=== PATIENT | male | born 1985 | race Caucasian/White ===

== ENCOUNTER 2016-05-30 16:20 | Inpatient (IN) | payer MEDICAID, OTHER ==
[2016-05-30] MEDS ORDERED: MAGNESIUM HYDROXIDE 2,400 MG/10 ML CUP PO PRN (22:06)
[2016-05-30] MEDS ORDERED: MAG HYDROX/AL HYDROX/SIMETH 30 ML CUP PO PRN (22:06)
[2016-05-30] MEDS ORDERED: LORazepam 2 MG/ML SYRINGE IM PRN (22:12)
[2016-05-30] MEDS ORDERED: QUEtiapine 100 MG TAB PO PRN (22:12)
[2016-05-30] MEDS: ACETAMINOPHEN TAB 325 MG TAB PO PRN (22:52)
[2016-05-30] MEDS: LORazepam 1 MG TAB PO PRN (22:53)
[2016-05-31] MEDS: LORazepam 1 MG TAB PO PRN ×2 (08:26→20:26)
[2016-05-31] MEDS: NICOTINE 21MG/24HR PATCH TRANSDERM SCH (08:26)
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
[2016-05-31] MEDS: ZIPRASIDONE 20 MG VIAL IM PRN ×2 (12:55→22:23)
[2016-05-31] MEDS ORDERED: WATER FOR INJECTION, STERILE 10 ML IV ONE ×2 (12:55→22:02)
[2016-05-31] MEDS: ARIPiprazole 15 MG TAB PO SCH ×2 (12:56→19:23)
--- NOTE | 2016-05-31 19:48 | CONS ---
DATE OF CONSULTATION: CHIEF COMPLAINT: Hallucinations. HISTORY OF PRESENT ILLNESS: This is a 30-year-old male who presented to the hospital with worsening hallucinations and depression. Patient currently is denying chest pain, shortness breath, nausea, vomiting, or abdominal pain. Patient is very difficult to obtain information due to his mental status. REVIEW OF SYSTEMS: All 14 systems reviewed and negative except as above. PAST MEDICAL HISTORY: Bipolar disorder, depression and anxiety. SOCIAL HISTORY: Positive for 1 pack per day cigarette smoking. No alcohol or drug abuse. PAST SURGICAL HISTORY: None. HOME MEDICATIONS: He takes sleeping pill at nighttime; unsure the name of that pill. FAMILY HISTORY: Refused to provide information as he is worried that I am going to use it against his family. ALLERGIES: No known drug allergies. PHYSICAL EXAMINATION: VITAL SIGNS: Reviewed and stable. LUNGS: Clear to auscultation bilaterally. HEART: Normal S1, S2. ABDOMEN: Soft, no tenderness. Positive bowel sounds in all four quadrants. SKIN: No new rash. LOWER EXTREMITIES: No edema. NEURO: No focal deficit. Cranial nerves 2 through 12 intact. HEENT: Atraumatic, normocephalic. PERRLA. NECK: Supple, no masses. No thyromegaly. IMAGING AND LABS: Reviewed. ASSESSMENT AND PLAN: 1. Hallucinations with bipolar disorder per your management. 2. Tobacco dependency. We will continue with nicotine patch during this hospital stay. 3. Will follow-up with you during this hospital stay on an as needed basis.
[2016-05-31] MEDS ORDERED: ZIPRASIDONE 20 MG VIAL IM ONE (22:02)
--- NOTE | 2016-06-01 08:22 | P.PN ---
Progress Note - Text Interval history: The patient is found in the hallway he follows me to an interview room reluctantly. He states "if I speak to you am I entering into a contract" the patient is carrying around his court related paperwork and is upset by information on the petition. He states until the issue is resolved he will refuse medication. He refers to me as acting on behalf of Lucifer. He continues to spontaneously speak of a variety of mandaeism themes. Mental status exam: The patient is alert he is dressed in a hospital gown he is wearing a blanket over top. Eye contact is intermittent. He is more agitated today. He describes feelings of persecution and paranoia. He feels that staff are doing things to him and he is concerned about his court paperwork. He feels that we are acting on behalf of the devil. Insight and judgment are poor. Obviously continues to experience acute symptoms of psychosis inhibiting appropriate psychosocial functioning. Staff report that he has been loud at times he has received Geodon injectable medication while on the mental health unit already. Affect is irritable. Speech is spontaneous mildly pressured. Plan: The patient will continue on his current medication we will monitor his compliance. I will speak with staff to see if the Geodon injection has been effective or if that needs to be changed. The patient requires continued psychiatric hospitalization. Vital signs reviewed.
[2016-06-01] MEDS: LORazepam 1 MG TAB PO PRN ×2 (08:49→15:53)
[2016-06-01] MEDS: ARIPiprazole 15 MG TAB PO SCH ×2 (08:49→13:38)
[2016-06-01] MEDS: NICOTINE 21MG/24HR PATCH TRANSDERM SCH ×2 (09:14→16:58)
[2016-06-01] MEDS: ACETAMINOPHEN TAB 325 MG TAB PO PRN (10:14)
[2016-06-01] MEDS: ZIPRASIDONE 20 MG VIAL IM PRN ×2 (10:17→21:43)
[2016-06-01] MEDS ORDERED: WATER FOR INJECTION, STERILE 10 ML IV ONE ×2 (10:19→21:28)
[2016-06-01] MEDS ORDERED: ZIPRASIDONE 20 MG VIAL IM ONE (21:28)
[2016-06-02] MEDS: LORazepam 1 MG TAB PO PRN (03:02)
[2016-06-02] MEDS: ARIPiprazole 15 MG TAB PO SCH (08:40)
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
[2016-06-02] MEDS: clonazePAM 1 MG TAB PO PRN ×2 (09:25→17:38)
[2016-06-02] MEDS: NICOTINE 21MG/24HR PATCH TRANSDERM SCH ×2 (10:02→13:12)
[2016-06-02] MEDS: ACETAMINOPHEN TAB 325 MG TAB PO PRN (16:20)
[2016-06-02] MEDS: QUEtiapine 100 MG TAB PO SCH (20:55)
[2016-06-03] MEDS: NICOTINE 21MG/24HR PATCH TRANSDERM SCH (08:44)
[2016-06-03] MEDS: clonazePAM 1 MG TAB PO PRN ×2 (08:44→16:49)
[2016-06-03] MEDS ORDERED: WATER FOR INJECTION, STERILE 10 ML IV ONE (11:31)
[2016-06-03] MEDS: ZIPRASIDONE 20 MG VIAL IM PRN (11:33)
--- NOTE | 2016-06-03 11:33 | P.PN ---
Progress Note - Text Interval history: The patient is found in the hallway he follows me to an interview room. He continues to struggle with symptoms of psychosis and believes he is the vessel for angels and demons. We attempted to discuss the court process he participated in in this morning and he states he doesn't understand it despite the explanation. He did not receive any injections yesterday and did comply with the Abilify oral dose so far. Mental status exam: The patient is alert he seated calmly in the chair he is soft-spoken. He continues to spontaneously verbalize paranoid and persecutory thoughts and is religiously preoccupied. He is reporting no thoughts of harming himself or others. Insight and judgment impaired. He demonstrates no agitated behavior. He does not present hypomanic or manic. He is able to maintain appropriate eye contact at times. Plan: The Abilify has been increased to 20 mg daily we will continue Seroquel 100 mg at bedtime temporarily. The patient did go to court and a treatment order was issued. If he refuses the Abilify he will receive a Geodon injection. We will continue to monitor him for safety and encourage his participation in the milieu. Vital signs reviewed.
[2016-06-03] MEDS: ACETAMINOPHEN TAB 325 MG TAB PO PRN (16:48)
[2016-06-03 21:00] LABS: Appearance,Urine Clear (Clear); Bilirubin,Urine Negative (Negative); Glucose,Urine (UA) Negative (Negative); Ketones,Urine Negative (Negative); Leukocyte Esterase,Urine Negative (Negative); Nitrite,Urine Negative (Negative); PH, Urine 6.5 (5.0-8.0); Protein,Urine Negative (Negative); Specific Gravity,Urine 1.005 (1.001-1.035); UA Billing (MACRO vs. MICRO) CHEM; Urobilinogen,Urine <2.0 mg/dL (<2.0)
[2016-06-03] MEDS: QUEtiapine 100 MG TAB PO SCH (21:13)
[2016-06-04] MEDS: clonazePAM 1 MG TAB PO PRN ×3 (05:02→20:45)
[2016-06-04] MEDS: ACETAMINOPHEN TAB 325 MG TAB PO PRN ×2 (06:57→20:44)
[2016-06-04] MEDS: NICOTINE 21MG/24HR PATCH TRANSDERM SCH (08:07)
[2016-06-04] MEDS: LORazepam 0.5 MG TAB PO PRN ×2 (10:23→17:42)
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
[2016-06-04] MEDS ORDERED: ARIPiprazole 10 MG TAB PO SCH (17:00)
[2016-06-04] MEDS: QUEtiapine 100 MG TAB PO SCH (22:42)
[2016-06-05] MEDS: ACETAMINOPHEN TAB 325 MG TAB PO PRN ×2 (06:00→10:45)
[2016-06-05] MEDS: LORazepam 0.5 MG TAB PO PRN (06:00)
[2016-06-05] MEDS: NICOTINE 21MG/24HR PATCH TRANSDERM SCH (08:27)
[2016-06-05] MEDS: clonazePAM 1 MG TAB PO PRN ×2 (10:45→16:14)
--- NOTE | 2016-06-05 15:07 | P.PN ---
Progress Note - Text Interval history:. I reviewed medical records and interviewed patient He reports sleeping better with Seroquel ,still endorsing :racing thoughts , auditory and visual hallucinations ,scientology delusion ,easy distracted and low frustration tolerance.Patient endorses high anxiety and ruminating about his diagnosis PER NURSING STAFF: No aggressive behavior but did require PRN Ativan at 6 AM Mental status exam: The patient is casually dressed ,good eyes contact ,speech is circumstantial but easy to redirect ,tearful at times when talking about " Not able to maintain job and be independent",denies suicidal or homicidal ideation ,endorses psychotic features :delusion and auditory hallucination,no command voice,no aggressive behavior ,his insight is improving to certain extend Plan: Discontinue PRN Ativan ,continue Abilify 30 mg daily ,Seroquel for sleep Klonopin PRN for anxiety. We will monitor him for safety and provide reality orientation when possible.
[2016-06-05 15:52] VITALS: BMI 24.3
[2016-06-06] MEDS: QUEtiapine 100 MG TAB PO SCH (00:11)
[2016-06-06] MEDS: ACETAMINOPHEN TAB 325 MG TAB PO PRN ×5 (00:13→22:52)
[2016-06-06] MEDS: clonazePAM 1 MG TAB PO PRN ×4 (00:14→22:52)
[2016-06-06] MEDS: ARIPiprazole 15 MG TAB PO SCH (08:16)
[2016-06-06] MEDS: NICOTINE 21MG/24HR PATCH TRANSDERM SCH (08:17)
--- NOTE | 2016-06-06 09:30 | P.PN ---
Progress Note - Text Interval history: The patient's is found in the hallway he follows me to an interview room. He reports that "there is less commotion in my head" referring to hallucinations. Although they are still present he feels he is able to begin thinking a little more clearly. He verbalizes goals of wanting to get employment and be productive. He states he continues to be "connected to the spirit realm". He continues to experience hallucinations from angels and demons and he feels he continues to be their vessel. He states ordinarily he is a peacemaker and not violent. It appears he did receive a when necessary injection over the weekend for some agitated behavior. His Abilify was titrated to 30 mg daily. Mental status exam: The patient is alert he seated calmly eye contact is appropriate speech is spontaneous fluent nonpressured. He's mildly circumstantial at times. He continues to endorse auditory and visual hallucinations. He states there is less commotion in his head meaning he is thinking a little more clearly. He is reporting no acute suicidal or homicidal ideation. Insight and judgment impaired slowly improving. He demonstrates no verbal or physical aggressiveness. No signs of EPS observed. He remains alert and oriented to person place and date. Plan: The patient will continue on the Abilify 30 mg daily we discussed utilizing Abilify maintena. He will continue using Seroquel 100 mg at bedtime as needed for insomnia. Vital signs reviewed. The patient requires further psychiatric hospitalization until his symptoms of psychosis improve further. There still causing him some dysfunction.
[2016-06-07] MEDS: QUEtiapine 100 MG TAB PO PRN (00:21)
[2016-06-07] MEDS: ARIPiprazole 15 MG TAB PO SCH (08:46)
[2016-06-07] MEDS: NICOTINE 21MG/24HR PATCH TRANSDERM SCH (08:47)
[2016-06-07] MEDS: clonazePAM 1 MG TAB PO PRN ×3 (08:47→22:58)
--- NOTE | 2016-06-07 09:02 | P.PN ---
Progress Note - Text Interval history: The patient is found in the hallway he follows me to an interview room. He states that he feels things are improving for him. He continues to process everything with a islam paradigm in terms of answering questions. There has been no report of agitated behavior. He feels his sleep is improving appetite is stable. He thinks each day he is increasingly more able to focus on goals. He expresses some concern for his mother who is dealing with breast cancer. We again discussed the use of Abilify maintena he appears receptive. Mental status exam: The patient is alert he seated calmly. He is wearing 2 shirts and 2 jackets. Hygiene appears adequate. Eye contact is good speech is fluent spontaneous nonpressured. He is more easily directed. Symptoms of psychosis are present but they seem to be causing less dysfunction here on the mental health unit. He is reporting no acute suicidal or homicidal ideation. Insight and judgment slowly improving. He demonstrates no verbal or physical aggressiveness. No evidence of extrapyramidal symptoms. Plan: The patient will continue on the Abilify we will likely instituted Abilify maintena this week. We will consider discharge towards the end of the week. We will continue to monitor him for safety and encourage his participation in the milieu and provide reality orientation when possible. Vital signs reviewed.
[2016-06-07] MEDS: ACETAMINOPHEN TAB 325 MG TAB PO PRN ×3 (10:47→21:53)
[2016-06-07] MEDS: NAPROXEN 250 MG TAB PO PRN ×2 (16:09→22:56)
[2016-06-08] MEDS: QUEtiapine 100 MG TAB PO PRN (00:46)
[2016-06-08] MEDS: ARIPiprazole 15 MG TAB PO SCH (08:08)
[2016-06-08] MEDS: NICOTINE 21MG/24HR PATCH TRANSDERM SCH ×2 (08:09→08:59)
[2016-06-08] MEDS: ACETAMINOPHEN TAB 325 MG TAB PO PRN ×2 (08:57→17:51)
--- NOTE | 2016-06-08 08:57 | P.PN ---
Progress Note - Text Interval history: The patient is found in the hallway he follows me to an interview room. He reports that his mood continues to improve. He feels he is able to think more clearly. We again discussed initiating the Abilify maintena injection and he is agreeable. We discussed discharge planning. He reports that he did sleep last night appetite is been stable. Mental status exam: The patient is alert he is dressed in his same clothing eye contact is appropriate speech is fluent nonpressured. He states his mood is good affect is constricted. He properly participates in the conversation there is no aggressive behavior. Insight and judgment slowly improving. There is still evidence of delusional thought but it is attenuated. He is reporting no suicidal or homicidal ideation intent or plan. There is no evidence of extrapyramidal symptoms. He remains oriented to person place and date. Plan: The patient will continue on his current psychotropic medication however we will discontinue the Seroquel and initiate amitriptyline 50 mg at bedtime. He is reporting suspected migraine pain which he has had for years this may also assist with sleep. He will receive and Abilify maintena injection 400 mg today. We will continue the oral dose of Abilify for 2 more weeks. I anticipate discharging the patient tomorrow if he demonstrates continued improvement and remains clinically stable.
[2016-06-08] MEDS: clonazePAM 1 MG TAB PO PRN ×3 (08:59→23:11)
[2016-06-08] MEDS ORDERED: ARIPiprazole 400 MG VIAL IM ONE (10:00)
[2016-06-08] MEDS ORDERED: NAPROXEN 250 MG TAB PO PRN (14:54)
[2016-06-08] MEDS ORDERED: AMITRIPTYLINE HCL 50 MG TAB PO SCH (21:00)
[2016-06-09 05:44] VITALS: BP 132/94; PULSE 76; RESP 16; TEMP 97.6
[2016-06-09] MEDS: ARIPiprazole 15 MG TAB PO SCH (08:43)
[2016-06-09] MEDS: clonazePAM 1 MG TAB PO PRN (08:43)
[2016-06-09] MEDS: NICOTINE 21MG/24HR PATCH TRANSDERM SCH (08:43)
[2016-06-09] MEDS: ACETAMINOPHEN TAB 325 MG TAB PO PRN (08:43)
--- NOTE | 2016-06-17 09:01 | DS ---
DATE OF ADMISSION: 05/30/2016 DATE OF DISCHARGE: 06/09/2016 CONSULT PHYSICIAN: Clyde. CONSULTING PROVIDER: Dr. Yvonne Núñez. CONSULT REASON: For medical management. Do you want consulting provider notified? Yes. DISCHARGE DIAGNOSES: 1. Schizoaffective disorder, depressed in early remission. 2. Cannabis use disorder. 3. Rule out schizophrenia, undifferentiated. BRIEF SUMMARY OF THE ADMISSION NOTE: Patient was admitted to the mental health unit through the emergency room on petition. Please refer to complete history and physical examination dictated by Dr. Barton on May 31, 2016. As the patient had extensive history of poor compliance with medication, Dr. Barton pursued involuntary admission and patient was ordered combined treatment between inpatient and outpatient treatment and he was started on injection for Abilify. HOSPITAL COURSE: At the time of admission, patient's urine drug screen was positive for cannabis. Patient was refusing any medication the first week of his until he went to the court then he was started on oral Abilify that gradually increased to 30 mg in the morning and received IM Abilify Maintena 400 mg. Patient was participating in group therapy. He was still restorationist preoccupied, but easy to redirect. MENTAL STATUS EXAMINATION: At the time of his discharge, the patient is alert, seated calmly, good eye contact. Speech is spontaneous, non-pressured. He was continued to be spiritually and restorationist preoccupied. He is still experiencing auditory and visual hallucinations, but according to him, it is no command voices, it is just spirits telling him to preach the gospel. He is reporting no acute suicidal or homicide ideation. His insight and judgment slowly improving. He demonstrates no verbal or physical aggression. DISCHARGE MEDICATIONS: 1. Abilify Maintena 400 mg IM once a month, is due end of June. 2. Abilify 30 mg daily in the morning for 2 weeks. 3. Amitriptyline 50 mg at bedtime for sleep and for migraine headache. 4. Also he was given 10 day supply of Klonopin 1 mg every 8 hours p.r.n. only for anxiety. PLAN: Patient has an appointment at [facility] on June 13 at 9:30 a.m. The patient is able to complete his activities of daily living. He denied any hopeless or helpless feeling. He denied any homicidal or suicide ideation that there is no imminent safety risk and he is appropriate for transition to outpatient care. Patient condition at the time of the discharge: Stable.
--- NOTE | 2016-06-21 13:30 | DS ---
DATE OF ADMISSION: 05/30/2016 DATE OF DISCHARGE: 06/09/2016 CONSULT PHYSICIAN: Clyde. CONSULTING PROVIDER: Dr. Yvonne Núñez. CONSULT REASON: For medical management. Do you want consulting provider notified? Yes. DISCHARGE DIAGNOSES: 1. Schizoaffective disorder. 2. Cannabis use disorder. 3. Poor compliance with medication. BRIEF SUMMARY OF THE ADMISSION NOTES: Patient was admitted on involuntary basis. Please refer to complete history and physical examination dictated by Dr. Barton on May 31, 2016. The patient presents with petition stating that the patient and has been having auditory and visual hallucinations, very buddhism preoccupied. Does believe that there is ( ) telling him to kill himself. Initially, he was very disorganized, kept talking about that he trusts in God, talking about demons and ivory using his blood to do God's will. Patient was refusing any medication and based on the past psychiatric history, it seems that he never had been compliant with oral medication in the outpatient setting. So Dr. Barton pursued involuntary admission and he completed the second clinical certificate as the patient was acute psychotic and refused all the medications. For complete social history and past psychiatric history, please refer to Dr. Barton's history and physical exam on May 31. HOSPITAL COURSE: Patient was under the care of Dr. Barton up to June 08; however, I covered him as Dr. Barton was on . After the deferral meeting, patient started on Abilify that gradually titrated to 30 mg at bedtime and he was started on injection 400 mg of Abilify Maintena. Patient was complaining of having migraine headache, so amitriptyline or Elavil was added to the combination to help him to sleep at night and also to help his migraine headache. As the patient was complaining of feeling restless, anxious, pacing back and forth, Klonopin was added to 1 mg every 8 hours p.r.n. Patient was compliant with medication, was participating in the group and he did agree to follow up in the outpatient treatment. Also he stated that his sleep and appetite have been improved and stable. MENTAL STATUS EXAMINATION: At the time of the discharge, patient was alert, dressed in his own clothing, appropriate eye contact. Speech is non pressured. He stated mood is good. Affect is constricted. There is no verbal or aggressive behavior . There is still some evidence of buddhism delusional, but it is much less than the time of the admission. There is no evidence of idea of reference or extrapyramidal symptoms. Patient denied any auditory or visual hallucination. He denied any suicidal or homicidal ideation intent or plan. He remained oriented to person, place and date. PLAN: 1. Patient was discharged from the mental health unit to return back home. 2. Patient has an appointment on June 13 at 9:30 a.m. at [facility] for intake. 3. Patient was instructed to abstain completely from cannabis. 4. Patient was given prescription for Elavil 50 mg at bedtime for 4 weeks supply; Abilify 30 mg daily for the next 2 weeks then he will discontinue; Abilify Maintena 400 mg IM once a month; Klonopin 1 mg every 8 hours p.r.n. Patient is aware of the addiction potential of Klonopin. He was given only 10 day supply. 5. There is no eminent safety risk and patient is appropriate for transition to outpatient care. Patient condition at the time of the discharge, stable.
== END 2016-06-09 10:04 | disposition home or self-care (01) | DRG 885 ==
LOC: EC 16:20 → 3MHU 20:54
PROVIDERS: ADMIT Psychiatry & Neurology Psychiatry; ATTEND Psychiatry & Neurology Psychiatry
DX: F25.9 Schizoaffective disorder, unspecified (principal); F23 Brief psychotic disorder; F22 Delusional disorders; F31.9 Bipolar disorder, unspecified; F17.210 Nicotine dependence, cigarettes, uncomplicated; F12.90 Cannabis use, unspecified, uncomplicated; F41.9 Anxiety disorder, unspecified; Z91.14 Patient's other noncompliance with medication regimen
CPT/HCPCS: 80306; 81003; 82075; 99285

== ENCOUNTER 2016-06-21 12:30 | Inpatient (IN) | payer MEDICAID, OTHER ==
--- NOTE | 2016-06-21 14:13 | ED ---
Recheck HPI - General Chief Complaint: Recheck/Abnormal Lab/Rx Stated Complaint: medrefill/change Time Seen by Provider: 06/21/16 13:21 Source: patient, RN notes reviewed Mode of arrival: ambulatory Limitations: no limitations - History of Present Illness Initial Comments: Patient is a 30-year-old male who presents to the emergency room for psychiatric evaluation. Patient states he just discharged from [facility] the last few weeks ago. Patient states he had his medication changed. Patient states he takes Vistaril, Abilify and Cogentin. Patient states he's recently started on Vistaril and Cogentin. Patient states the Vistaril was causing him to have restless leg symptoms was given Cogentin to offset the symptoms. Patient states that he stopped taking the Vistaril on Monday. Patient states he began having increasing visual and auditory hallucinations. Patient does state he has a history of hallucinations. Patient states this morning he heard a voice saying his name. Patient states he'll have hallucinations of seeing plans for patient to continue his life. Patient denies suicidal ideations. Patient states he would never go through with the plans that he is being told. Patient states he thinks he needs his medication changed. Patient denies homicidal ideations. Patient denies fevers, chills, chest pain, shortness of breath. Patient does state that he has a slight headache. Patient denies alcohol use. Patient denies illicit drug use. - Related Data Home Medications Medication Instructions Recorded Confirmed ARIPiprazole [ARIPiprazole] 30 mg PO DAILY 06/21/16 06/21/16 ARIPiprazole [Abilify Maintena] 400 mg IM QMONTH 06/21/16 06/21/16 Benztropine Mesylate [Cogentin] 2 mg PO TID 06/21/16 06/21/16 hydrOXYzine PAMOATE [Vistaril] 25 mg PO TID 06/21/16 06/21/16 traZODone HCL [Desyrel] 100 mg PO HS 06/21/16 06/21/16 Allergies Allergy/AdvReac Type Severity Reaction Status Date / Time No Known Allergies Allergy Verified 06/21/16 12:37 Review of Systems ROS Statement: Those systems with pertinent positive or pertinent negative responses have been documented in the HPI. ROS Other: All systems not noted in ROS Statement are negative. Past Medical History Past Medical History: No Reported History History of Any Multi-Drug Resistant Organisms: None Reported Additional Past Surgical History / Comment(s): Had surgery on his nose here at [facility]. Past Anesthesia/Blood Transfusion Reactions: No Reported Reaction Past Psychological History: Anxiety, Bipolar Smoking Status: Current every day smoker Past Alcohol Use History: None Reported Past Drug Use History: None Reported - Past Family History Mother Additional Family Medical History / Comment(s): no medical problems Father History Unknown: Yes Additional Family Medical History / Comment(s): alcoholism General Exam - General Exam Comments Initial Comments: Sitting in exam room, no acute distress. Limitations: no limitations General appearance: alert, in no apparent distress Head exam: Present: atraumatic, normocephalic, normal inspection Eye exam: Present: normal appearance ENT exam: Present: normal exam Neck exam: Present: normal inspection Respiratory exam: Present: normal lung sounds bilaterally. Absent: respiratory distress Cardiovascular Exam: Present: normal rhythm, tachycardia, normal heart sounds Extremities exam: Present: normal inspection Back exam: Present: normal inspection Neurological exam: Present: alert, oriented X3, CN II-XII intact, normal gait Psychiatric exam: Present: normal affect, normal mood Skin exam: Present: warm, dry, intact, normal color. Absent: rash Course Vital Signs 06/21/16 06/21/16 06/21/16 12:33 14:21 17:00 Temperature 96.7 F L 99.5 F 98.3 F Pulse Rate 112 H 105 H Respiratory 18 14 Rate Blood Pressure 143/90 132/69 O2 Sat by Pulse 98 96 Oximetry 06/21/16 17:10 Temperature 98.3 F Pulse Rate 105 H Respiratory 18 Rate Blood Pressure 132/69 O2 Sat by Pulse 96 Oximetry Medical Decision Making - Medical Decision Making Patient is a 30-year-old male presents emergency room for evaluation of psychiatric symptoms. Patient states that he was feeling warm. Influenza ordered, patient refused. Patient denies any other symptoms or complaints. Patient is medically cleared to be evaluated by psych. Patient evaluated by psych and will be admitted. - Lab Data Lab Results 06/21/16 06/21/16 Range/Units 14:17 14:17 Urine Color Light Yellow Urine Appearance Clear (Clear) Urine pH 6.5 (5.0-8.0) Ur Specific [place] 1.002 (1.001-1.035) Urine Protein Negative (Negative) Urine Glucose (UA) Negative (Negative) Urine Ketones Negative (Negative) Urine Blood Negative (Negative) Urine Nitrate Negative (Negative) Urine Bilirubin Negative (Negative) Urine Urobilinogen <2.0 (<2.0) mg/dL Ur Leukocyte Esterase Negative (Negative) Urine Opiates Screen Not Detected (NotDetected) Ur Oxycodone Screen Not Detected (NotDetected) Urine Methadone Screen Not Detected (NotDetected) Ur Propoxyphene Screen Not Detected (NotDetected) Ur Barbiturates Screen Not Detected (NotDetected) U Tricyclic Antidepress Not Detected (NotDetected) Ur Phencyclidine Scrn Not Detected (NotDetected) Ur Amphetamines Screen Not Detected (NotDetected) U Methamphetamines Scrn Not Detected (NotDetected) U Benzodiazepines Scrn Not Detected (NotDetected) Urine Cocaine Screen Not Detected (NotDetected) U Marijuana (THC) Screen Not Detected (NotDetected) Disposition Clinical Impression: Hallucinations Disposition: ADMITTED IP TO THIS [facility] Condition: Stable Decision Date: 06/21/16
[2016-06-21] MEDS ORDERED: ACETAMINOPHEN TAB 500 MG TAB PO STA (16:49)
[2016-06-21] MEDS ORDERED: MAGNESIUM HYDROXIDE 2,400 MG/10 ML CUP PO PRN (17:06)
[2016-06-21] MEDS ORDERED: MAG HYDROX/AL HYDROX/SIMETH 30 ML CUP PO PRN (17:06)
[2016-06-21 17:11] VITALS: RESP 18
[2016-06-21] MEDS ORDERED: hydrOXYzine PAMOATE 25 MG CAP PO PRN (17:11)
[2016-06-21] MEDS ORDERED: ARIPIPRAZOLE 400 MG IM SCH (17:15)
[2016-06-21 17:21] LABS: Appearance,Urine Clear (Clear); Bilirubin,Urine Negative (Negative); Glucose,Urine (UA) Negative (Negative); Ketones,Urine Negative (Negative); Leukocyte Esterase,Urine Negative (Negative); Nitrite,Urine Negative (Negative); PH, Urine 6.5 (5.0-8.0); Protein,Urine Negative (Negative); Specific Gravity,Urine 1.002 (1.001-1.035); UA Billing (MACRO vs. MICRO) CHEM; Urobilinogen,Urine <2.0 mg/dL (<2.0)
[2016-06-21] MEDS ORDERED: ZIPRASIDONE 20 MG VIAL IM ONE (18:09)
[2016-06-21] MEDS ORDERED: WATER FOR INJECTION, STERILE 10 ML IV ONE (18:09)
[2016-06-21] MEDS: ZIPRASIDONE 20 MG VIAL IM PRN (18:23)
[2016-06-21] MEDS: ACETAMINOPHEN TAB 325 MG TAB PO PRN (20:44)
[2016-06-21] MEDS: BENZTROPINE MESYLATE 1 MG TAB PO SCH (20:45)
[2016-06-21] MEDS ORDERED: traZODone HCL 100 MG TAB PO SCH (21:00)
[2016-06-22] MEDS: ACETAMINOPHEN TAB 325 MG TAB PO PRN ×3 (05:22→20:31)
[2016-06-22] MEDS ORDERED: WATER FOR INJECTION, STERILE 10 ML IV ONE (06:37)
[2016-06-22] MEDS ORDERED: ZIPRASIDONE 20 MG VIAL IM ONE (06:37)
[2016-06-22] MEDS: ZIPRASIDONE 20 MG VIAL IM PRN (06:41)
[2016-06-22] MEDS: BENZTROPINE MESYLATE 1 MG TAB PO SCH ×2 (09:26→20:30)
[2016-06-22] MEDS: ARIPiprazole 15 MG TAB PO SCH (09:26)
[2016-06-22] MEDS: NICOTINE 14MG/24HR PATCH TRANSDERM SCH ×2 (09:26→18:36)
[2016-06-22] MEDS: busPIRone HCl 10 MG TAB PO SCH ×2 (09:27→20:30)
--- NOTE | 2016-06-22 09:33 | P.HP ---
Psychiatric H&P - . History & Physical: Allergies Allergy/AdvReac Type Severity Reaction Status Date / Time No Known Allergies Allergy Verified 06/21/16 12:37 Vital Signs Temp 98.3 F 06/21/16 17:10 Pulse 95 06/22/16 05:23 Resp 18 06/22/16 05:23 BP 136/80 06/22/16 05:23 Pulse Ox 96 06/21/16 17:10 Laboratory Last Values Urine Color Light Yellow 06/21/16 14: Urine Appearance Clear (Clear) 06/21/16 14:17 Urine pH 6.5 (5.0-8.0) 06/21/16 14:17 Ur Specific [place] 1.002 (1.001-1.035) 06/21/16 14: Urine Protein Negative (Negative) 06/21/16 14:17 Urine Glucose (UA) Negative (Negative) 06/21/16 14:17 Urine Ketones Negative (Negative) 06/21/16 14:17 Urine Blood Negative (Negative) 06/21/16 14:17 Urine Nitrate Negative (Negative) 06/21/16 14:17 Urine Bilirubin Negative (Negative) 06/21/16 14:17 Urine Urobilinogen <2.0 mg/dL (<2.0) 06/21/16 14:17 Ur Leukocyte Esterase Negative (Negative) 06/21/16 14:17 Urine Opiates Screen Not Detected (NotDetected) 06/21/16 14:17 Ur Oxycodone Screen Not Detected (NotDetected) 06/21/16 14:17 Urine Methadone Screen Not Detected (NotDetected) 06/21/16 14:17 Ur Propoxyphene Screen Not Detected (NotDetected) 06/21/16 14:17 Ur Barbiturates Screen Not Detected (NotDetected) 06/21/16 14:17 U Tricyclic Antidepress Not Detected (NotDetected) 06/21/16 14:17 Ur Phencyclidine Scrn Not Detected (NotDetected) 06/21/16 14:17 Ur Amphetamines Screen Not Detected (NotDetected) 06/21/16 14:17 U Methamphetamines Scrn Not Detected (NotDetected) 06/21/16 14:17 U Benzodiazepines Scrn Not Detected (NotDetected) 06/21/16 14:17 Urine Cocaine Screen Not Detected (NotDetected) 06/21/16 14:17 U Marijuana (THC) Screen Not Detected (NotDetected) 06/21/16 14:17 06/22/16 09:26 IDENTIFYING DATA: This patient is a 30-year-old male who was admitted to the mental health unit through the emergency room on an existing treatment order for mood symptoms and symptoms of psychosis. HPI: The patient presented reporting hopelessness feelings and he felt overwhelmed with anxiety. He endorsed a worsening of auditory hallucinations. The patient was recently discharged from this unit please refer to the psychiatric evaluation on 05/31/2016 for details pertaining to that admission. The patient feels overwhelmed by current anxiety he states that his Klonopin was discontinued and he was placed on Vistaril and Cogentin. With the last admission we initiated Abilify maintena for symptoms of psychosis. His amitriptyline was discontinued he was placed on trazodone. He continues to have shinto preoccupation he endorses auditory hallucinations. He reported thoughts of . He is reporting no thoughts of harming anyone else. No clear history of hypomanic or manic episodes. PAST PSYCHIATRIC HISTORY: This is the patient's fifth inpatient psychiatric admission he was recently discharged from this unit. He is on Abilify maintena and completing the oral course as well. Previously had been on Zyprexa. He is established with [facility]. No history of suicide attempts. No history of any other self-injurious behavior. PMH: None reported ALLERGIES: NO KNOWN DRUG ALLERGIES MEDICATIONS: Abilify maintena, oral Abilify, Cogentin, Vistaril, trazodone CHEMICAL DEPENDENCY HISTORY: He is reporting no recent alcohol use previously he described using alcohol twice a month having 2-3 shots. He has been known to use marijuana frequently FAMILY PSYCHIATRIC HISTORY: His father was known to have unspecified mental illness no suicides in the family FAMILY CHEMICAL DEPENDENCY HISTORY: His father is known to be alcohol dependent SOCIAL HISTORY: The patient is 30 years old she single he has no children he is not employed no history of service, he has a high school education with some college classes. He has 1 sister. He was raised by both parents up until the age of 13 until they . Legal history includes one DUI no reported abuse history MENTAL STATUS EXAM: The patient's is a balding male he is dressed in his own clothing eye contact is appropriate speech is fluent spontaneous mildly pressured at times but he is still directable. He frequently changes position while seated in his chair. He demonstrates no verbal or physical aggressiveness. He endorses a mood that is depressed and primarily anxious he endorses auditory hallucinations that are noncommanding. He continues to be religiously preoccupied. Affect appears frustrated. Thought process is circumstantial he is somewhat perseverative. There is no psychomotor slowing. He is oriented to person place and date. He is able spell world backwards. STRENGTHS/WEAKNESSES: Strengths: He is on an existing court order, outpatient follow-up through [facility] weaknesses impaired insight into symptoms of anxiety and psychosis INTELLECTUAL FUNCTIONING: Average IMPRESSIONS: [] 1. Psychosis unspecified rule out schizophrenia versus schizoaffective disorder , rule out cannabis use disorder PLAN: The patient has been admitted to the mental health unit on an existing court order. We will continue the oral Abilify 30 mg daily we will discontinue Vistaril and trazodone. We will reinitiate amitriptyline 50 mg at bedtime. For his anxiety complaint we will initiate BuSpar 10 mg twice daily. We discussed potential benefits and side effects of these medications and his questions were answered. He is encouraged to try to process his anxiety symptoms further in groups or with other coping skills. He will undergo a routine medical consultation social work will meet with the patient to complete a psychosocial assessment and begin discharge planning.
--- NOTE | 2016-06-22 15:15 | P.CONS ---
History of Present Illness - Reason for Consult Consult date: 06/22/16 Medical management - History of Present Illness This is a 30-year-old male. He does not have a primary care physician. He has a past mental history of anxiety and bipolar disorder, tobacco use and dependence. Patient was recently hospitalized in Patient states that the ACT team WAS not helping him and he had made multiple phone calls. He also does not think the medications he was on was helping. He states that he was seen by the ER physician and had a physical exam done at that time and he does not need a repeat done by us. Urinalysis was negative and urine drug screen negative. Patient refuses medical examination and review of his medical history. Past Medical History Past Medical History: No Reported History History of Any Multi-Drug Resistant Organisms: None Reported Additional Past Surgical History / Comment(s): Had surgery on his nose here at [facility]. Past Anesthesia/Blood Transfusion Reactions: No Reported Reaction Past Psychological History: Anxiety, Bipolar Smoking Status: Current every day smoker Past Alcohol Use History: None Reported Past Drug Use History: None Reported - Past Family History Mother Additional Family Medical History / Comment(s): no medical problems Father History Unknown: Yes Additional Family Medical History / Comment(s): alcoholism Medications and Allergies Home Medications Medication Instructions Recorded Confirmed Type ARIPiprazole [ARIPiprazole] 30 mg PO DAILY 06/21/16 06/21/16 History ARIPiprazole [Abilify Maintena] 400 mg IM QMONTH 06/21/16 06/21/16 History Benztropine Mesylate [Cogentin] 2 mg PO TID 06/21/16 06/21/16 History hydrOXYzine PAMOATE [Vistaril] 25 mg PO TID 06/21/16 06/21/16 History traZODone HCL [Desyrel] 100 mg PO HS 06/21/16 06/21/16 History Allergies Allergy/AdvReac Type Severity Reaction Status Date / Time No Known Allergies Allergy Verified 06/21/16 12:37 Physical Exam Vitals: Vital Signs Temp Pulse Pulse Resp BP BP Pulse Ox 06/22/16 05:23 95 18 136/80 06/21/16 17:10 98.3 F 105 H 18 132/69 96 06/21/16 17:00 98.3 F 105 H 14 132/69 96
[2016-06-22] MEDS: AMITRIPTYLINE HCL 50 MG TAB PO SCH (20:30)
[2016-06-23] MEDS: ACETAMINOPHEN TAB 325 MG TAB PO PRN ×3 (04:54→16:40)
[2016-06-23] MEDS: NICOTINE 14MG/24HR PATCH TRANSDERM SCH (08:18)
[2016-06-23] MEDS: BENZTROPINE MESYLATE 1 MG TAB PO SCH ×2 (08:18→20:06)
[2016-06-23] MEDS: ARIPiprazole 15 MG TAB PO SCH (08:19)
[2016-06-23] MEDS: busPIRone HCl 10 MG TAB PO SCH ×2 (08:21→20:06)
--- NOTE | 2016-06-23 08:39 | P.PN ---
Progress Note - Text Interval history: The patient is found in the hallway he follows me to an interview room. He reports his mood is improving. He slept last night. Appetite is stable he is attending groups. He states he is willing to give our medication change a chance. He is looking forward to seeking job opportunities once discharged. It seems that his auditory hallucinations are resolving. He reports no command auditory hallucinations. Mental status exam: The patient is alert he seated calmly eye contact is appropriate speech is fluent and spontaneous nonpressured. He does interrupt me several times during our session he is more aware of it and apologizes. He reports no acute suicidal or homicidal ideation intent or plan. He is endorsing no command auditory hallucinations. He continues to explain almost everything in a temple context. Overall his psychosis is improved compared to last admission. Insight and judgment improving. There is no verbal or physical aggressiveness. No abnormal involuntary movements appreciated. Plan: The patient's will continue on his current psychotropic medications. We will assess him for another 24 hours and consider discharging him tomorrow. He is encouraged to participate in the milieu. Vital signs reviewed blood pressure pulse elevated. We will continue to monitor him for safety.
[2016-06-23] MEDS: AMITRIPTYLINE HCL 50 MG TAB PO SCH (20:06)
[2016-06-24 06:47] VITALS: BP 115/63; PULSE 61; TEMP 97.8
[2016-06-24] MEDS: busPIRone HCl 10 MG TAB PO SCH (08:31)
[2016-06-24] MEDS: NICOTINE 14MG/24HR PATCH TRANSDERM SCH (08:31)
[2016-06-24] MEDS: BENZTROPINE MESYLATE 1 MG TAB PO SCH (08:31)
[2016-06-24] MEDS: ARIPiprazole 15 MG TAB PO SCH (08:31)
--- NOTE | 2016-06-24 09:58 | P.DS ---
Providers Date of admission: 06/21/16 16:55 Expected date of discharge: 06/24/16 Attending physician: William Barton Consults: 06/21/16 17:06 Consult Physician Routine Consulting Provider: Jose Simmons Consult Reason/Comments: follow up H & P Do you want consulting provider notified?: Yes Primary care physician: Stated None - Discharge Diagnosis(es) (1) Schizoaffective disorder Current Visit: Yes Status: Acute Priority: High (2) Cannabis use disorder, mild, abuse Current Visit: Yes Status: Acute Priority: Medium Hospital Course: Brief summary of admission note: This patient is a 30-year-old single male who was readmitted to the mental health unit through the emergency room on an existing treatment order for mood symptoms and an exacerbation of psychotic symptoms. The patient reported he felt hopeless he felt overwhelmed with symptoms of anxiety. He endorses a worsening of auditory hallucinations. He was recently discharged from this mental health unit earlier this month. The patient states he was upset that his Klonopin was discontinued he was placed on Vistaril and Cogentin. The Abilify maintena was initiated with his last admission for symptoms of psychosis. For full details please refer to my psychiatric evaluation dated 06/22/2016. Summary of hospital course: The patient was admitted to the mental health unit he presented voluntarily but is on an existing court order for psychiatric treatment. We reviewed his presenting symptoms and medication options. He clearly presented less psychotic than last admission indicating the Abilify has been effective. We discussed that he is not able to continue using benzodiazepines as they were meant to be only temporarily prescribed. We decided to treat anxiety symptoms with BuSpar this was initiated 10 mg twice daily and titrated further during the course of the admission. We discontinued trazodone and started amitriptyline 50 mg at bedtime again. Cogentin was restarted and titrated to 1 mg 3 times daily. The patient demonstrated no agitated behavior he required no use of restraints. His acute symptoms resolved fairly quickly during this admission. He is endorsing no acute suicidal or homicidal ideation. He endorsed no command auditory hallucinations. He is reporting future oriented thinking and goals for trying to obtain work and work towards independent living. He is scheduled to work with the act team and the patient is agreeable. Mental status exam: The patient is alert he is a balding male he is dressed in his own clothing. Eye contact is appropriate speech is fluent and spontaneous nonpressured. He appropriately participates in the conversation. He is not verbally intrusive there is no verbal or physical aggressiveness demonstrated. He continues to have a advent preoccupation but he speaks of it less spontaneously. Again he is clearly doing better in terms of psychosis compared to last admission. He reports no suicidal or homicidal ideation intent or plan. He does not appear hypomanic or manic. He is endorsing no paranoid or persecutory thoughts. Insight and judgment improved. He demonstrates no abnormal involuntary movements. He remains oriented to person place and date. He is able to demonstrate an appropriate range of affect. Impressions 1. Schizoaffective disorder, cannabis use disorder Plan: The patient will be discharged from the mental health unit today. He is scheduled to follow up with the act team at 2 PM. He has been on the oral Abilify for a sufficient amount of time that can be discontinued. He is due for his next Abilify maintena 400 mg IM no later than July 09. He will continue on BuSpar 15 mg twice daily, Cogentin 1 mg 3 times daily, amitriptyline 50 mg at bedtime. He is encouraged to abstain from any use of alcohol marijuana or any other illicit drugs. He is not interested in participating in inpatient chemical dependency treatment. The plan would be for him to address these issues with outpatient mental health services. He is able to participate in his own activities of daily living. There is no imminent safety risk he is appropriate for transition back to outpatient psychiatric care. He is instructed to return to the hospital with any acute safety concerns. Patient Condition at Discharge: Stable Plan - Discharge Summary New Discharge Prescriptions: ARIPiprazole [Abilify Maintena] 400 mg IM QMONTH #1 vial NS Amitriptyline HCl [Elavil] 50 mg PO HS #30 tab Benztropine Mesylate [Cogentin] 1 mg PO TID #90 tab Nicotine 14Mg/24Hr Patch [Habitrol] 1 patch TRANSDERM DAILY #14 patch busPIRone HCL 15 mg PO BID #60 tab Discharge Medication List ARIPiprazole [Abilify Maintena] 400 mg IM QMONTH #1 vial NS 06/24/16 [Rx] Amitriptyline HCl [Elavil] 50 mg PO HS #30 tab 06/24/16 [Rx] Benztropine Mesylate [Cogentin] 1 mg PO TID #90 tab 06/24/16 [Rx] Nicotine 14Mg/24Hr Patch [Habitrol] 1 patch TRANSDERM DAILY #14 patch 06/24/16 [ Rx] busPIRone HCL 15 mg PO BID #60 tab 06/24/16 [Rx] Follow up Appointment(s)/Referral(s): [facility] [Outside] - 1 Week (w/ CARLA at [facility] on 06/24/16 @ 2pm w/ Jacque Davidson on 06/27/16 @ 3pm) None,Stated [Primary Care Provider] - 1 Week
[2016-06-24] MEDS ORDERED: BENZTROPINE MESYLATE 1 MG TAB PO SCH (16:00)
[2016-06-24] MEDS ORDERED: busPIRone HCl 5 MG TAB PO SCH (21:00)
== END 2016-06-24 10:31 | disposition home or self-care (01) | DRG 885 ==
LOC: EC 12:30 → 3MHU 16:55
PROVIDERS: ADMIT Psychiatry & Neurology Psychiatry; ATTEND Psychiatry & Neurology Psychiatry
DX: F25.9 Schizoaffective disorder, unspecified (principal); F31.9 Bipolar disorder, unspecified; F41.9 Anxiety disorder, unspecified; G25.81 Restless legs syndrome; T43.595A Adverse effect of other antipsychotics and neuroleptics, initial encounter; F17.200 Nicotine dependence, unspecified, uncomplicated; F12.10 Cannabis abuse, uncomplicated; Z79.899 Other long term (current) drug therapy; Z81.1 Family history of alcohol abuse and dependence; Z81.8 Family history of other mental and behavioral disorders
CPT/HCPCS: 80306; 81003; 82075; 99285

== ENCOUNTER 2017-09-19 21:38 | Emergency (ER) | payer OTHER ==
--- NOTE | 2017-09-19 22:02 | ED ---
Psych HPI <Chuy Kay - Last Filed: 09/20/17 00:48> - General Source: patient Mode of arrival: ambulatory <Amber Feliciano - Last Filed: 09/20/17 04:14> - General Chief Complaint: Psychiatric Symptoms Stated Complaint: Mental Health Time Seen by Provider: 09/19/17 21:49 - History of Present Illness Initial Comments: 32-year-old male patient presents to the emergency department today for evaluation of suicidal ideation. Patient states that he has suffered for a long time with depression and anxiety. He states that [place] of [place] a year ago was off his medications for a few months. States that over the last few weeks he has had an increase in suicidal ideation. He states that he has "a couple of plans "that he would use to take his life. He states that he did make an appointment with [facility] and saw them on Monday. States he did receive an injection of antidepressant medication and started on some medications, states he has been taking over the last 2 days but hasn't help his symptoms. He denies any increase in his symptoms states they have been about the same. He denies any alcohol or drug use. States he is currently homeless and living in a truck. States he is having difficulty sleeping with frequent nightmares. Patient states that he "deals with the spiritual realm" and he has been interacting with "angels and demons". He denies any homicidal ideation. He states he is currently feeling well physically. Denies any physical symptoms. (Amber Feliciano) - Related Data Home Medications Medication Instructions Recorded Confirmed ARIPiprazole [Abilify Maintena] 400 mg IM QMONTH 09/19/17 09/19/17 Prazosin HCl 2 mg PO HS 09/19/17 09/19/17 busPIRone HCL [Buspar] 30 mg PO BID@0700,1400 09/19/17 09/19/17 hydrOXYzine PAMOATE [Vistaril] 50 mg PO HS 09/19/17 09/19/17 Previous Rx's Medication Instructions Recorded Benztropine Mesylate [Cogentin] 1 mg PO TID #90 tab 06/24/16 Allergies Allergy/AdvReac Type Severity Reaction Status Date / Time No Known Allergies Allergy Verified 09/19/17 22:12 Review of Systems ROS Other: All systems not noted in ROS Statement are negative. <Chuy Kay - Last Filed: 09/20/17 00:48> ROS Other: All systems not noted in ROS Statement are negative. <Amber Feliciano - Last Filed: 09/20/17 04:14> ROS Statement: Those systems with pertinent positive or pertinent negative responses have been documented in the HPI. Past Medical History Past Medical History: No Reported History History of Any Multi-Drug Resistant Organisms: None Reported Additional Past Surgical History / Comment(s): nasal Past Anesthesia/Blood Transfusion Reactions: No Reported Reaction Past Psychological History: Anxiety, Bipolar Smoking Status: Current every day smoker Past Alcohol Use History: None Reported Past Drug Use History: None Reported - Past Family History Mother Additional Family Medical History / Comment(s): no medical problems Father History Unknown: Yes Additional Family Medical History / Comment(s): alcoholism <Amber Feliciano - Last Filed: 09/20/17 04:14> General Exam Limitations: no limitations General appearance: alert, in no apparent distress, other (This is a well- developed, well-nourished adult male patient in no acute distress. Vital signs upon presentation are temperature 97.6F, pulse 102, respirations 16, blood pressure 126/80, pulse ox 99% on room air.) Eye exam: Present: normal appearance, PERRL, EOMI. Absent: scleral icterus, conjunctival injection, periorbital swelling ENT exam: Present: normal exam, normal oropharynx, mucous membranes moist Respiratory exam: Present: normal lung sounds bilaterally. Absent: respiratory distress, wheezes, rales, rhonchi, stridor Cardiovascular Exam: Present: regular rate, normal rhythm, normal heart sounds. Absent: systolic murmur, diastolic murmur, rubs, gallop, clicks GI/Abdominal exam: Present: soft, normal bowel sounds. Absent: distended, tenderness, guarding, rebound, rigid Neurological exam: Present: alert, oriented X3, CN II-XII intact Psychiatric exam: Present: normal affect, normal mood Skin exam: Present: warm, dry, intact, normal color. Absent: rash <Amber Feliciano - Last Filed: 09/20/17 04:14> Course <Chuy Kay - Last Filed: 09/20/17 00:48> <Amber Feliciano - Last Filed: 09/20/17 04:14> Vital Signs 09/19/17 09/20/17 09/20/17 21:41 01:29 03:04 Temperature 97.6 F 97.5 F L Pulse Rate 102 H 72 Respiratory 16 18 16 Rate Blood Pressure 126/80 116/53 O2 Sat by Pulse 99 99 Oximetry - Reevaluation(s) Reevaluation #1: 09/20/17 00:50 When patient was informed that he would have to have his blood drawn for transfer to another psychiatric facility he became upset stating that he refused to have his blood drawn. He stated that it was against his jainism and he feared what we would do with the blood. When asked about his orthodoxy affiliation, he stated "we aren't talking about that". I did explain the transfer process and that in order to provide the best care to him we had to have blood work to rule out physiologic causes of his symptoms. Patient again refused stating that he would not cooperate to have his blood drawn. I explained the petition process and what it meant for him and his psychiatric care. Patient stated that if we forced him to give blood samples that there would be "repercussions when he was discharged". Patient stated "it won't be now, but later when I'm discharged there'll be consequences". consulting engineer present for duration of the conversation. 09/20/17 00:53 (Amber Feliciano) Medical Decision Making <Chuy Kay - Last Filed: 09/20/17 00:48> - Lab Data Result diagrams: 09/20/17 00:47 09/20/17 00:47 <Amber Feliciano - Last Filed: 09/20/17 04:14> - Medical Decision Making I saw this patient in conjunction with the physician casting assistant. I performed independent history and physical exam. Agree with case management. When I interview the patient, he admits to noncompliance with his psychiatric medications for couple of months now. He states over the past weeks his mood has worsened and he is now having a relatively frequent suicidal thoughts. When questioned if he has a plan, states that "there are number of options." Patient does not contract for safety. Clinical certification is filed. (Chuy Kay) 32-year-old male patient presented to the emergency department today with suicidal ideation and delusions. Physical examination was unremarkable. Labs reviewed and were unremarkable other than drug screen being positive for cocaine. Patient was seen and evaluated by [facility] and it was determined that he would benefit from inpatient admission. Patient would not contract for safety and petition was filed. Patient will be transferred to [facility] after 8:30 in the morning due to their staffing coordination. Patient does have patient safety Center present. Patient will be monitored by attending physician until disposition. (Amber Feliciano) - Lab Data Lab Results 09/20/17 09/20/17 09/20/17 Range/Units 00:47 00:47 01:29 WBC 7.8 (3.8-10.6) k/uL RBC 5.14 (4.30-5.90) m/uL Hgb 15.6 (13.0-17.5) gm/dL Hct 46.5 (39.0-53.0) % MCV 90.5 (80.0-100.0) fL MCH 30.3 (25.0-35.0) pg MCHC 33.5 (31.0-37.0) g/dL RDW 13.1 (11.5-15.5) % Plt Count 311 (150-450) k/uL Neutrophils % 54 % Lymphocytes % 34 % Monocytes % 6 % Eosinophils % 4 % Basophils % 0 % Neutrophils # 4.2 (1.3-7.7) k/uL Lymphocytes # 2.6 (1.0-4.8) k/uL Monocytes # 0.5 (0-1.0) k/uL Eosinophils # 0.3 (0-0.7) k/uL Basophils # 0.0 (0-0.2) k/uL Sodium 143 (137-145) mmol/L Potassium 4.4 (3.5-5.1) mmol/L Chloride 109 H (98-107) mmol/L Carbon Dioxide 26 (22-30) mmol/L Anion Gap 8 mmol/L BUN 12 (9-20) mg/dL Creatinine 1.00 (0.66-1.25) mg/dL Est GFR (CKD-EPI)AfAm >90 (>60 ml/min/1.73 sqM) Est GFR (CKD-EPI)NonAf >90 (>60 ml/min/1.73 sqM) Glucose 97 (74-99) mg/dL Calcium 8.3 L (8.4-10.2) mg/dL Total Bilirubin 0.3 (0.2-1.3) mg/dL AST 21 (17-59) U/L ALT 47 (21-72) U/L Alkaline Phosphatase 55 (38-126) U/L Total Protein 4.9 L (6.3-8.2) g/dL Albumin 3.1 L (3.5-5.0) g/dL Urine Color Yellow Urine Appearance Clear (Clear) Urine pH 7.5 (5.0-8.0) Ur Specific [place] 1.018 (1.001-1.035) Urine Protein Negative (Negative) Urine Glucose (UA) Negative (Negative) Urine Ketones Negative (Negative) Urine Blood Negative (Negative) Urine Nitrite Negative (Negative) Urine Bilirubin Negative (Negative) Urine Urobilinogen <2.0 (<2.0) mg/dL Ur Leukocyte Esterase Negative (Negative) Urine Opiates Screen Not Detected (NotDetected) Ur Oxycodone Screen Not Detected (NotDetected) Urine Methadone Screen Not Detected (NotDetected) Ur Propoxyphene Screen Not Detected (NotDetected) Ur Barbiturates Screen Not Detected (NotDetected) U Tricyclic Antidepress Not Detected (NotDetected) Ur Phencyclidine Scrn Not Detected (NotDetected) Ur Amphetamines Screen Not Detected (NotDetected) U Methamphetamines Scrn Not Detected (NotDetected) U Benzodiazepines Scrn Not Detected (NotDetected) Urine Cocaine Screen Detected H (NotDetected) U Marijuana (THC) Screen Not Detected (NotDetected) Disposition <Chuy Kay - Last Filed: 09/20/17 00:48> - Out of Hospital Transfer - Req. Specs Out of Hospital Transfer - Requested Specifics: Psychiatric Non-ICU ([facility] [place]) <Amber Feliciano - Last Filed: 09/20/17 04:14> Clinical Impression: Suicidal ideation, Delusions Disposition: TRANSFER TO PSYCH HOSP/UNIT Referrals: None,Stated [Primary Care Provider] - 1-2 days
[2017-09-20 00:56] LABS: Basophils % (A) 0 %; Eosinophils # (A) 0.3 k/uL (0-0.7); Eosinophils % (A) 4 %; HCT 46.5 % (39.0-53.0); HGB 15.6 gm/dL (13.0-17.5); Lymphocytes # (A) 2.6 k/uL (1.0-4.8); Lymphocytes % (A) 34 %; MCH 30.3 pg (25.0-35.0); MCHC 33.5 g/dL (31.0-37.0); MCV 90.5 fL (80.0-100.0); Monocytes # (A) 0.5 k/uL (0-1.0); Monocytes % (A) 6 %; Neutrophils # (A) 4.2 k/uL (1.3-7.7); Neutrophils % (A) 54 %; Platelet Count 311 k/uL (150-450); RBC 5.14 m/uL (4.30-5.90); RDW 13.1 % (11.5-15.5); WBC 7.8 k/uL (3.8-10.6)
[2017-09-20 01:09] LABS: ALT 47 U/L (21-72); AST 21 U/L (17-59); Albumin 3.1 g/dL (3.5-5.0); Alkaline Phosphatase 55 U/L (38-126); Anion Gap 8 mmol/L; Blood Urea Nitrogen 12 mg/dL (9-20); Calcium 8.3 mg/dL (8.4-10.2); Carbon Dioxide 26 mmol/L (22-30); Chloride 109 mmol/L (98-107); Glucose 97 mg/dL (74-99); Potassium 4.4 mmol/L (3.5-5.1); Sodium 143 mmol/L (137-145); Total Bilirubin 0.3 mg/dL (0.2-1.3); Total Protein 4.9 g/dL (6.3-8.2)
[2017-09-20 01:40] LABS: Appearance,Urine Clear (Clear); Bilirubin,Urine Negative (Negative); Blood,Urine Negative (Negative); Color,Urine Yellow; Glucose,Urine (UA) Negative (Negative); Ketones,Urine Negative (Negative); Leukocyte Esterase,Urine Negative (Negative); Nitrite,Urine Negative (Negative); PH, Urine 7.5 (5.0-8.0); Protein,Urine Negative (Negative); Specific Gravity,Urine 1.018 (1.001-1.035); Urobilinogen,Urine <2.0 mg/dL (<2.0)
[2017-09-20 01:58] LABS: Cocaine Screen,Urine Detected (NotDetected); Phencyclidine Screen,Urine Not Detected (NotDetected); Urn Cannabinoid Scrn Not Detected (NotDetected)
[2017-09-20 01:59] LABS: Amphetamine Screen,Urine Not Detected (NotDetected); Barbiturate Screen,Urine Not Detected (NotDetected); Benzodiazepines Screen,Urine Not Detected (NotDetected); Methadone Screen, Urine Not Detected (NotDetected); Opiate Screen,Urine Not Detected (NotDetected); Oxycodone Screen, Urine Not Detected (NotDetected); Tricyclic Antidepressant,Urine Not Detected (NotDetected)
[2017-09-20] MEDS ORDERED: clonazePAM 1 MG TAB PO STA (05:41)
[2017-09-20 06:56] VITALS: TEMP 98
[2017-09-20 08:37] VITALS: BP 108/70; PULSE 64; RESP 16
== END 2017-09-20 09:10 ==
LOC: EC 21:38
DX: F22 Delusional disorders (principal); R45.851 Suicidal ideations; F32.9 Major depressive disorder, single episode, unspecified; F41.9 Anxiety disorder, unspecified; F17.200 Nicotine dependence, unspecified, uncomplicated; Z79.899 Other long term (current) drug therapy
CPT/HCPCS: 36415; 80053; 80306; 81003; 82075; 85025; 99285

== ENCOUNTER 2018-02-05 08:31 | Emergency (ER) | payer OTHER ==
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
[2018-02-05 10:51] VITALS: RESP 18
[2018-02-05 11:32] VITALS: BP 117/77; PULSE 89; TEMP 98.7
== END 2018-02-05 11:30 | disposition home or self-care (01) ==
LOC: EC 08:31
DX: R51 Headache (principal); S50.312A Abrasion of left elbow, initial encounter; S80.212A Abrasion, left knee, initial encounter; S80.211A Abrasion, right knee, initial encounter; F20.9 Schizophrenia, unspecified; F31.9 Bipolar disorder, unspecified; F41.9 Anxiety disorder, unspecified; F17.200 Nicotine dependence, unspecified, uncomplicated; Z79.899 Other long term (current) drug therapy; Y04.0XXA Assault by unarmed brawl or fight, initial encounter; Y93.89 Activity, other specified
CPT/HCPCS: 70450; 72125; 99284

== ENCOUNTER 2021-04-02 17:20 | Emergency (ER) | payer OTHER ==
[2021-04-02 17:37] VITALS: BP 130/80; PULSE 94; RESP 16; TEMP 98.3
[2021-04-02] MEDS ORDERED: SODIUM CHLORIDE 0.9% 1,000 ML IV STA (17:48)
[2021-04-02 18:05] LABS: Appearance,Urine Clear (Clear); Bilirubin,Urine Negative (Negative); Blood,Urine Negative (Negative); Color,Urine Yellow; Glucose,Urine (UA) Negative (Negative); Hyaline Casts,Urine 3 /lpf (0-2); Ketones,Urine 1+ (Negative); Leukocyte Esterase,Urine Negative (Negative); Mucus,Urine Few /hpf; Nitrite,Urine Negative (Negative); PH, Urine 5.5 (5.0-8.0); Protein,Urine 1+ (Negative); RBC,Urine <1 /hpf (0-5); Specific Gravity,Urine 1.039 (1.001-1.035); WBC,Urine <1 /hpf (0-5)
[2021-04-02 18:11] LABS: Amphetamine Screen,Urine Not Detected (NotDetected); Barbiturate Screen,Urine Not Detected (NotDetected); Benzodiazepines Screen,Urine Not Detected (NotDetected); Cocaine Screen,Urine Not Detected (NotDetected); Methadone Screen, Urine Not Detected (NotDetected); Opiate Screen,Urine Detected (NotDetected); Oxycodone Screen, Urine Not Detected (NotDetected); Phencyclidine Screen,Urine Not Detected (NotDetected); Tricyclic Antidepressant,Urine Not Detected (NotDetected); Urn Cannabinoid Scrn Detected (NotDetected)
--- NOTE | 2021-04-02 18:15 | ED ---
Overdose HPI - General Source: patient, EMS, RN notes reviewed Mode of arrival: EMS Limitations: no limitations <Alec Sanchez - Last Filed: 04/02/21 18:05> - History of Present Illness MD Complaint: accidental overdose (Denying intentional suicide attempt) -: hour(s) Intent: want to go to sleep How Overdose Was Discovered: family/friend present at time Treatments Prior to Arrival: none <Hi Diamond - Last Filed: 04/03/21 01:00> - General Chief Complaint: Overdose Stated Complaint: altered mental status, poss overdose Time Seen by Provider: 04/02/21 17:36 - History of Present Illness Initial Comments: This is a 35-year-old male presents emergency from with police and EMS with chief complaint of possible overdose. Patient's been having some bizarre behavior mother reported that she was received a phone call stating that he drank a bottle of NyQuil and she states that he abuses kratom. Patient is not forthcoming with any information. Patient no physical complaints. Patient does admit to marijuana use. Patient denies headache chest pain denies being suicidal homicidal. (Alec Sanchez) - Related Data Home Medications Medication Instructions Recorded Confirmed No Known Home Medications 04/02/21 04/02/21 Allergies Allergy/AdvReac Type Severity Reaction Status Date / Time No Known Allergies Allergy Verified 04/02/21 19:43 Review of Systems ROS Other: All systems not noted in ROS Statement are negative. <Alec Sanchez - Last Filed: 04/02/21 18:05> ROS Other: All systems not noted in ROS Statement are negative. <Hi Diamond - Last Filed: 04/03/21 01:00> ROS Statement: Those systems with pertinent positive or pertinent negative responses have been documented in the HPI. Past Medical History Past Medical History: No Reported History History of Any Multi-Drug Resistant Organisms: None Reported Past Surgical History: Unable to Obtain Additional Past Surgical History / Comment(s): nasal Past Anesthesia/Blood Transfusion Reactions: No Reported Reaction Past Psychological History: Anxiety, Bipolar, Schizophrenia Smoking Status: Former smoker Past Alcohol Use History: Unable to Obtain Past Drug Use History: Cocaine - Past Family History Mother Additional Family Medical History / Comment(s): no medical problems Father History Unknown: Yes Additional Family Medical History / Comment(s): alcoholism <Alec Sanchez - Last Filed: 04/02/21 18:05> General Exam Limitations: no limitations General appearance: alert, in no apparent distress Head exam: Present: atraumatic, normocephalic, normal inspection Eye exam: Present: normal appearance, PERRL, EOMI. Absent: scleral icterus, conjunctival injection, periorbital swelling ENT exam: Present: normal exam, normal oropharynx, mucous membranes moist Neck exam: Present: normal inspection, full ROM. Absent: tenderness, meningismus, lymphadenopathy Respiratory exam: Present: normal lung sounds bilaterally. Absent: respiratory distress, wheezes, rales, rhonchi, stridor Cardiovascular Exam: Present: regular rate, normal rhythm, normal heart sounds. Absent: systolic murmur, diastolic murmur, rubs, gallop, clicks GI/Abdominal exam: Present: soft, normal bowel sounds. Absent: distended, tenderness, guarding, rebound, rigid Neurological exam: Present: alert, oriented X3, CN II-XII intact Psychiatric exam: Present: flat affect <Alec Sanchez - Last Filed: 04/02/21 18:05> General appearance: alert, in no apparent distress Head exam: Present: atraumatic, normocephalic, normal inspection Eye exam: Present: normal appearance, PERRL, EOMI. Absent: scleral icterus, conjunctival injection, periorbital swelling ENT exam: Present: normal exam, mucous membranes moist Neck exam: Present: normal inspection. Absent: tenderness, meningismus, lymphadenopathy Respiratory exam: Present: normal lung sounds bilaterally. Absent: respiratory distress, wheezes, rales, rhonchi, stridor Cardiovascular Exam: Present: regular rate, normal rhythm, normal heart sounds. Absent: systolic murmur, diastolic murmur, rubs, gallop, clicks GI/Abdominal exam: Present: soft, normal bowel sounds. Absent: distended, tenderness, guarding, rebound, rigid Extremities exam: Present: normal inspection, full ROM, normal capillary refill. Absent: tenderness, pedal edema, joint swelling, calf tenderness Back exam: Present: normal inspection Neurological exam: Present: alert, oriented X3, CN II-XII intact Psychiatric exam: Present: normal affect, normal mood Skin exam: Present: warm, dry, intact, normal color. Absent: rash <Roskopp,Hi B - Last Filed: 04/03/21 01:00> Course <Hi Diamond - Last Filed: 04/03/21 01:00> Vital Signs 04/02/21 17:23 Temperature 98.3 F Pulse Rate 94 Respiratory 16 Rate Blood Pressure 130/80 O2 Sat by Pulse 97 Oximetry - Reevaluation(s) Reevaluation #1: 04/03/21 00:59 Medical record is reviewed Medically clear for psychiatric evaluation (Hi Diamond) Reevaluation #2: 04/03/21 00:59 Mother feels comfortable taking patient home (Hi Diamond) Medical Decision Making - Lab Data Result diagrams: 04/02/21 18:03 04/02/21 18:03 <Hi Diamond - Last Filed: 04/03/21 01:00> - Medical Decision Making 35 male to the ER for evaluation, patient will be discharged home to care of his mother (Hi Diamond) - Lab Data Lab Results 04/02/21 04/02/21 04/02/21 Range/Units 17:51 18:03 18:03 WBC 12.3 H (3.8-10.6) k/uL RBC 4.95 (4.30-5.90) m/uL Hgb 15.5 (13.0-17.5) gm/dL Hct 46.3 (39.0-53.0) % MCV 93.5 (80.0-100.0) fL MCH 31.3 (25.0-35.0) pg MCHC 33.5 (31.0-37.0) g/dL RDW 12.8 (11.5-15.5) % Plt Count 362 (150-450) k/uL MPV 8.6 Neutrophils % 87 % Lymphocytes % 8 % Monocytes % 4 % Eosinophils % 0 % Basophils % 0 % Neutrophils # 10.7 H (1.3-7.7) k/uL Lymphocytes # 0.9 L (1.0-4.8) k/uL Monocytes # 0.5 (0-1.0) k/uL Eosinophils # 0.1 (0-0.7) k/uL Basophils # 0.0 (0-0.2) k/uL Sodium 135 L (137-145) mmol/L Potassium 3.5 (3.5-5.1) mmol/L Chloride 99 (98-107) mmol/L Carbon Dioxide 18 L (22-30) mmol/L Anion Gap 18 mmol/L BUN 7 L (9-20) mg/dL Creatinine 0.78 (0.66-1.25) mg/dL Est GFR (CKD-EPI)AfAm >90 (>60 ml/min/1.73 sqM) Est GFR (CKD-EPI)NonAf >90 (>60 ml/min/1.73 sqM) Glucose 141 H (74-99) mg/dL Calcium 9.1 (8.4-10.2) mg/dL Total Bilirubin 0.8 (0.2-1.3) mg/dL AST 24 (17-59) U/L ALT 24 (4-49) U/L Alkaline Phosphatase 56 (38-126) U/L Total Protein 6.8 (6.3-8.2) g/dL Albumin 4.5 (3.5-5.0) g/dL Urine Color Yellow Urine Appearance Clear (Clear) Urine pH 5.5 (5.0-8.0) Ur Specific [place] 1.039 H (1.001-1.035) Urine Protein 1+ H (Negative) Urine Glucose (UA) Negative (Negative) Urine Ketones 1+ H (Negative) Urine Blood Negative (Negative) Urine Nitrite Negative (Negative) Urine Bilirubin Negative (Negative) Urine Urobilinogen 2.0 (<2.0) mg/dL Ur Leukocyte Esterase Negative (Negative) Urine RBC <1 (0-5) /hpf Urine WBC <1 (0-5) /hpf Hyaline Casts 3 H (0-2) /lpf Urine Mucus Few H (None) /hpf Salicylates <1.0 mg/dL Urine Opiates Screen Detected H (NotDetected) Ur Oxycodone Screen Not Detected (NotDetected) Urine Methadone Screen Not Detected (NotDetected) Ur Propoxyphene Screen Not Detected (NotDetected) Acetaminophen 59.7 H* ug/mL Ur Barbiturates Screen Not Detected (NotDetected) U Tricyclic Antidepress Not Detected (NotDetected) Ur Phencyclidine Scrn Not Detected (NotDetected) Ur Amphetamines Screen Not Detected (NotDetected) U Methamphetamines Scrn Not Detected (NotDetected) U Benzodiazepines Scrn Not Detected (NotDetected) Urine Cocaine Screen Not Detected (NotDetected) U Marijuana (THC) Screen Detected H (NotDetected) Serum Alcohol <10 mg/dL 04/02/21 Range/Units 22:24 WBC (3.8-10.6) k/uL RBC (4.30-5.90) m/uL Hgb (13.0-17.5) gm/dL Hct (39.0-53.0) % MCV (80.0-100.0) fL MCH (25.0-35.0) pg MCHC (31.0-37.0) g/dL RDW (11.5-15.5) % Plt Count (150-450) k/uL MPV Neutrophils % % Lymphocytes % % Monocytes % % Eosinophils % % Basophils % % Neutrophils # (1.3-7.7) k/uL Lymphocytes # (1.0-4.8) k/uL Monocytes # (0-1.0) k/uL Eosinophils # (0-0.7) k/uL Basophils # (0-0.2) k/uL Sodium (137-145) mmol/L Potassium (3.5-5.1) mmol/L Chloride (98-107) mmol/L Carbon Dioxide (22-30) mmol/L Anion Gap mmol/L BUN (9-20) mg/dL Creatinine (0.66-1.25) mg/dL Est GFR (CKD-EPI)AfAm (>60 ml/min/1.73 sqM) Est GFR (CKD-EPI)NonAf (>60 ml/min/1.73 sqM) Glucose (74-99) mg/dL Calcium (8.4-10.2) mg/dL Total Bilirubin (0.2-1.3) mg/dL AST (17-59) U/L ALT (4-49) U/L Alkaline Phosphatase (38-126) U/L Total Protein (6.3-8.2) g/dL Albumin (3.5-5.0) g/dL Urine Color Urine Appearance (Clear) Urine pH (5.0-8.0) Ur Specific [place] (1.001-1.035) Urine Protein (Negative) Urine Glucose (UA) (Negative) Urine Ketones (Negative) Urine Blood (Negative) Urine Nitrite (Negative) Urine Bilirubin (Negative) Urine Urobilinogen (<2.0) mg/dL Ur Leukocyte Esterase (Negative) Urine RBC (0-5) /hpf Urine WBC (0-5) /hpf Hyaline Casts (0-2) /lpf Urine Mucus (None) /hpf Salicylates mg/dL Urine Opiates Screen (NotDetected) Ur Oxycodone Screen (NotDetected) Urine Methadone Screen (NotDetected) Ur Propoxyphene Screen (NotDetected) Acetaminophen 27.0 ug/mL Ur Barbiturates Screen (NotDetected) U Tricyclic Antidepress (NotDetected) Ur Phencyclidine Scrn (NotDetected) Ur Amphetamines Screen (NotDetected) U Methamphetamines Scrn (NotDetected) U Benzodiazepines Scrn (NotDetected) Urine Cocaine Screen (NotDetected) U Marijuana (THC) Screen (NotDetected) Serum Alcohol mg/dL Disposition <Alec Sanchez M - Last Filed: 04/02/21 18:05> Is patient prescribed a controlled substance at d/c from ED?: No <Hi Diamond - Last Filed: 04/03/21 01:00> Clinical Impression: Accidental drug overdose Disposition: HOME SELF-CARE Condition: Good Instructions (If sedation given, give patient instructions): Adult Overdose (ED) Referrals: Kyrie Gutierrez DO [Primary Care Provider] - 1-2 days
[2021-04-02 18:25] LABS: Basophils % (A) 0 %; Eosinophils # (A) 0.1 k/uL (0-0.7); Eosinophils % (A) 0 %; HCT 46.3 % (39.0-53.0); HGB 15.5 gm/dL (13.0-17.5); Lymphocytes # (A) 0.9 k/uL (1.0-4.8); Lymphocytes % (A) 8 %; MCH 31.3 pg (25.0-35.0); MCHC 33.5 g/dL (31.0-37.0); MCV 93.5 fL (80.0-100.0); Mean Platelet Volume 8.6; Monocytes # (A) 0.5 k/uL (0-1.0); Monocytes % (A) 4 %; Neutrophils # (A) 10.7 k/uL (1.3-7.7); Neutrophils % (A) 87 %; Platelet Count 362 k/uL (150-450); RBC 4.95 m/uL (4.30-5.90); RDW 12.8 % (11.5-15.5); WBC 12.3 k/uL (3.8-10.6)
[2021-04-02 18:35] LABS: ALT 24 U/L (4-49); AST 24 U/L (17-59); African American GFR (CKD) >90 (>60 ml/min/1.73 sqM); Albumin 4.5 g/dL (3.5-5.0); Alcohol <10 mg/dL; Alkaline Phosphatase 56 U/L (38-126); Anion Gap 18 mmol/L; Blood Urea Nitrogen 7 mg/dL (9-20); Calcium 9.1 mg/dL (8.4-10.2); Carbon Dioxide 18 mmol/L (22-30); Chloride 99 mmol/L (98-107); Glucose 141 mg/dL (74-99); Non-African American GFR(CKD) >90 (>60 ml/min/1.73 sqM); Potassium 3.5 mmol/L (3.5-5.1); Salicylate <1.0 mg/dL; Sodium 135 mmol/L (137-145); Total Bilirubin 0.8 mg/dL (0.2-1.3); Total Protein 6.8 g/dL (6.3-8.2)
[2021-04-02 18:42] LABS: Acetaminophen 59.7 ug/mL
== END 2021-04-03 01:13 | disposition home or self-care (01) ==
LOC: EC 17:20
DX: T48.5X1A Poisoning by other anti-common-cold drugs, accidental (unintentional), initial encounter (principal); F41.9 Anxiety disorder, unspecified; F31.9 Bipolar disorder, unspecified; F25.9 Schizoaffective disorder, unspecified; Z87.891 Personal history of nicotine dependence
CPT/HCPCS: 99284; 96360; 36415; 93005; 80053; 85025; 81001; 80306; 80143; 80179; G0480; 80320

== ENCOUNTER 2024-01-07 22:35 | Emergency (ER) | payer BC, MEDICARE, OTHER ==
[2024-01-07 23:53] LABS: Basophils % (A) 0 %; Eosinophils # (A) 0.1 k/uL (0-0.7); Eosinophils % (A) 1 %; HCT 45.7 % (39.0-53.0); Lymphocytes # (A) 2.4 k/uL (1.0-4.8); Lymphocytes % (A) 23 %; MCH 29.8 pg (25.0-35.0); MCHC 32.7 g/dL (31.0-37.0); MCV 90.9 fL (80.0-100.0); Mean Platelet Volume 6.8; Monocytes # (A) 0.8 k/uL (0-1.0); Monocytes % (A) 8 %; Neutrophils # (A) 7.1 k/uL (1.3-7.7); Neutrophils % (A) 66 %; Platelet Count 591 k/uL (150-450); RBC 5.03 m/uL (4.30-5.90); RDW 11.8 % (11.5-15.5); WBC 10.7 k/uL (3.8-10.6)
[2024-01-08 00:05] LABS: INR 0.9 (<1.2); Partial Thromboplastin Time 25.7 sec (22.0-30.0); Prothrombin Time 10.5 sec (10.0-12.5)
--- NOTE | 2024-01-08 00:16 | XR ---
EXAM: XR Chest, 2 Views CLINICAL HISTORY: ITS.REASON XR Reason: Chest Pain TECHNIQUE: Frontal and lateral views of the chest. COMPARISON: No relevant prior studies available. FINDINGS: Lungs: Unremarkable. No consolidation. Pleural space: Unremarkable. No pneumothorax. Heart: Unremarkable. No cardiomegaly. Mediastinum: Unremarkable. Normal mediastinal contour. Bones/joints: Unremarkable. No acute fracture. IMPRESSION: Normal chest x-rays.
[2024-01-08 00:24] LABS: ALT 28 U/L (4-49); AST 23 U/L (17-59); African American GFR (CKD) >90 (>60 ml/min/1.73 sqM); Albumin 4.6 g/dL (3.5-5.0); Alkaline Phosphatase 55 U/L (38-126); Anion Gap 9 mmol/L; Blood Urea Nitrogen 23 mg/dL (9-20); Calcium 9.4 mg/dL (8.4-10.2); Carbon Dioxide 24 mmol/L (22-30); Chloride 107 mmol/L (98-107); Glucose 92 mg/dL (74-99); Lipase 162 U/L (23-300); Magnesium 2.1 mg/dL (1.6-2.3); Non-African American GFR(CKD) 80 (>60 ml/min/1.73 sqM); Potassium 4.6 mmol/L (3.5-5.1); Sodium 140 mmol/L (137-145); Total Bilirubin 0.9 mg/dL (0.2-1.3); Total Protein 6.9 g/dL (6.3-8.2)
--- NOTE | 2024-01-08 00:36 | ED ---
Chest Pain HPI - General Chief Complaint: Chest Pain Stated Complaint: CP Time Seen by Provider: 01/07/24 22:49 Source: patient, RN notes reviewed Mode of arrival: ambulatory Limitations: no limitations - History of Present Illness Initial Comments: This is a 38-year-old male with no significant past medical history presents emergency department chief complaint of left-sided chest pain that started about 4 days ago. Patient states that he was sitting in a somewhat uncomfortable position when he noticed that the chest pain started. States that he is having pain with laying on the left side of his chest as well. He has been complaining of his 'heart aching' as well. Denies shortness of breath, difficulty breathing, recent prolonged travel, recent surgeries, history of DVT or blood clotting disorders. Denies history of hypertension, high cholesterol. Patient is currently using vape and has a smoking history. - Related Data Previous Rx's Medication Instructions Recorded methylPREDNISolone Dose Pack 4 mg PO DIRECTED #1 packet 01/23/23 [Medrol Dose Pack] Allergies Allergy/AdvReac Type Severity Reaction Status Date / Time No Known Allergies Allergy Verified 01/07/24 22:45 Review of Systems ROS Statement: Those systems with pertinent positive or pertinent negative responses have been documented in the HPI. ROS Other: All systems not noted in ROS Statement are negative. Past Medical History Past Medical History: No Reported History History of Any Multi-Drug Resistant Organisms: None Reported Past Surgical History: Unable to Obtain Additional Past Surgical History / Comment(s): nasal Past Anesthesia/Blood Transfusion Reactions: No Reported Reaction Past Psychological History: Anxiety, Bipolar, Schizophrenia Smoking Status: Vaper Past Alcohol Use History: None Reported Past Drug Use History: None Reported, Cocaine - Past Family History Mother Additional Family Medical History / Comment(s): no medical problems Father History Unknown: Yes Additional Family Medical History / Comment(s): alcoholism General Exam Limitations: no limitations General appearance: alert, in no apparent distress ENT exam: Present: normal exam, mucous membranes moist Neck exam: Present: normal inspection. Absent: tenderness, meningismus, lymphadenopathy Respiratory exam: Present: normal lung sounds bilaterally, chest wall tenderness (anterior left). Absent: respiratory distress, wheezes, rales, rhonchi, stridor Cardiovascular Exam: Present: regular rate, normal rhythm, normal heart sounds. Absent: systolic murmur, diastolic murmur, rubs, gallop, clicks GI/Abdominal exam: Present: soft, normal bowel sounds. Absent: distended, tenderness, guarding, rebound, rigid Extremities exam: Present: normal inspection, full ROM, normal capillary refill. Absent: tenderness, pedal edema, joint swelling, calf tenderness Back exam: Present: normal inspection Skin exam: Present: warm, dry, intact, normal color. Absent: rash Course Vital Signs 01/07/24 01/08/24 22:45 01:12 Temperature 98.9 F 98.2 F Pulse Rate 83 87 Respiratory 17 16 Rate Blood Pressure 146/99 128/82 O2 Sat by Pulse 98 Oximetry Chest Pain MDM - MDM Was pt. sent in by a medical professional or institution (, PA, QUARRY EQUIPMENT OPERATOR, urgent care, hospital, or halfway...) When possible be specific @ -No Did you speak to anyone other than the patient for history (EMS, parent, family, police, friend...)? What history was obtained from this source @ -No Did you review nursing and triage notes (agree or disagree)? Why? @ -I reviewed and agree with nursing and triage notes Were old charts reviewed (outside hosp., previous admission, EMS record, old EKG, old radiological studies, urgent care reports/EKG's, halfway records)? Report findings @ -No old charts were reviewed Differential Diagnosis (chest pain, altered mental status, abdominal pain women, abdominal pain men, vaginal bleeding, weakness, fever, dyspnea, syncope, headache, dizziness, GI bleed, back pain, seizure, CVA, palpatations, mental health, musculoskeletal)? @ -Differential Chest Pain: Stable Angina, Unstable Angina, STEMI, NSTEMI Aortic Dissection, Pneumothorax, Musculoskeletal, Esophageal Spasm GERD, Cholecystitis, Pancreatitis, Zoster, this is not meant to be an all-inclusive list. EKG interpreted by me (3pts min.). @ -@2254 sinus rhythm with sinus arrhythmia, ventricular rate 81, FL interval 155, QRS 90, QTc 376. No acute signs of ischemia. X-rays interpreted by me (1pt min.). @ -Chest x-ray no acute cardiopulmonary process or disease noted. CT interpreted by me (1pt min.). @ -None done U/S interpreted by me (1pt. min.). @ -None done What testing was considered but not performed or refused? (CT, X-rays, U/S, labs)? Why? @ -None What meds were considered but not given or refused? Why? @ -None Did you discuss the management of the patient with other professionals ( professionals i.e. , PA, QUARRY EQUIPMENT OPERATOR, lab, RT, psych nurse, aids social worker, ultrasound technol, teacher, dog license officer supervisor, bilingual patient support caseworker)? Give summary @ -No Was smoking cessation discussed for >3mins.? @ -I discussed smoking cessation for greater than 3 minutes. The risk of smoking were discussed with the patient including but not limited to risks of cancer, stroke, coronary artery disease and COPD. Also discussed with patient were multiple methods of quitting smoking. Lastly we discussed the financial cost of smoking. Was critical care preformed (if so, how long)? @ -No Were there social determinants of health that impacted care today? How? (Homelessness, low income, unemployed, alcoholism, drug addiction, transportation, low edu. Level, literacy, decrease access to med. care, care home, rehab)? @ -No Was there de-escalation of care discussed even if they declined (Discuss DNR or withdrawal of care, Hospice)? DNR status @ -No What co-morbidities impacted this encounter? (DM, HTN, Smoking, COPD, CAD, Cancer, CVA, ARF, Chemo, Hep., AIDS, mental health diagnosis, sleep apnea, morbid obesity)? @ -None Was patient admitted / discharged? Hospital course, mention meds given and route, prescriptions, significant lab abnormalities, going to OR and other pertinent info. @ -Discharge. 38-year-old male with chest pain. Patient's physical exam reveals left-sided chest pain that is mildly reproducible palpation. Patient states that chest pain is exacerbated with inspiration. Vitals are stable and he is in no signs of acute distress. CBC, CMP, coagulation profile within normal limits, troponin nonelevated at less than 0.012, lipase within normal. Last x- ray no acute cardiopulmonary process. Distally, patient's heart score for adverse risk of 6-week cardiac event has 0 points as he does not have any significant cardiac history and his workup has been benign. Patient symptoms may be due to pleurisy as he does have an extensive smoking history and uses a vape chronically has his chest pain is exacerbated with inspiration. He is provided with dose of Toradol emergency department and instructed to continue anti-inflammatory or Tylenol outpatient for symptomatic relief. Also he is educ ated and stressed on the importance to discontinue vaping. Discussed with Dr. Price Undiagnosed new problem with uncertain prognosis? @ -No Drug Therapy requiring intensive monitoring for toxicity (Heparin, Nitro, Insulin, Cardizem)? @ -No Were any procedures done? @ -No Diagnosis/symptom? @ -pleurisy Acute, or Chronic, or Acute on Chronic? @ -Acute Uncomplicated (without systemic symptoms) or Complicated (systemic symptoms)? @ -Uncomplicated Side effects of treatment? @ -No Exacerbation, Progression, or Severe Exacerbation? @ -No Poses a threat to life or bodily function? How? (Chest pain, [place], PA, pneumonia, PE, COPD, DKA, ARF, appy, cholecystitis, CVA, Diverticulitis, Homicidal, Suicidal, threat to staff... and all critical care pts) @ -No Disposition Clinical Impression: Chest pain, Pleurisy Disposition: HOME SELF-CARE Condition: Good Instructions (If sedation given, give patient instructions): Pleurisy (ED) Additional Instructions: Return to the emergency department for any new or worsening symptoms. Is patient prescribed a controlled substance at d/c from ED?: No Referrals: None,Stated [Primary Care Provider] - 1-2 days Time of Disposition: 00:59
[2024-01-08] MEDS: KETOROLAC 15 MG/ML 1 ML VIAL IVP STA (01:07)
[2024-01-08 01:14] VITALS: BP 128/82; PULSE 87; RESP 16; TEMP 98.2
== END 2024-01-08 01:13 | disposition home or self-care (01) ==
LOC: EC 22:35
CPT/HCPCS: 36415; 71046; 80053; 83690; 83735; 84484; 85025; 85610; 85730; 93005; 96372; 99285; 99406

== ENCOUNTER → 2024-05-08 | Outpatient (CLI) | payer MEDICARE | END | disposition home or self-care (01) | LOC: LABWHC1 09:11 | PROVIDERS: ATTEND Urology | DX: Z83.3 Family history of diabetes mellitus (principal) | CPT/HCPCS: 36415; 83036 ==